=== PATIENT | male | born 2000 | race Hispanic/Latino ===

== ENCOUNTER 2021-10-26 08:53 | Emergency (ER) | payer SELFPAY ==
--- OUTSIDE RECORDS SUMMARY | 2021-10-26 08:57 | XMS REPORT | Continuity of Care Document ---
:2000 Author Organization [facility] t Address [address] [place] [address] Care Team Providers Name Role Phone Zakiya Coker Attending Clinician Zakiya POLLOCK Attending Clinician Unavailable Provider, Urgent Care Attending Clinician Unavailable Thomas RENDON Attending Clinician Bakari MOSES Attending Clinician Unavailable Payers Payer Name Policy Type Policy Number Effective Date Expiration Date S ource TITLE V 0-100% [id number] 2016 00:00:00 Problems Condition Condition Condition Status Onset Resolution Last Treating Co mments Source Name Details Category Date Date Treatment Clinician Date Genital Genital Disease Active 0 Univers warts warts 6 ity of 00:00: [place] 00 Medical Branch Screening Screening Disease Active Uni vers examinatio examinatio 12-25 it y of n for n for 00:00: [place] venereal venereal 00 Medica l disease disease Branch [facility] Disease Active 2020-0 Univers (molluscum (molluscum 12-24 it y of contagiosu contagiosu 00:00: Tommy mcconnell m) m) 00 Medical Branch Allergies, Adverse Reactions, Alerts Allergy Allergy Status Severity Reaction(s) Onset Inactive Treating Comm ents Source Name Type Date Date Clinician NO KNOWN Drug Active Univers ALLERGIE Class ity of [facility] [place] Social History Social Habit Start Date Stop Date Quantity Comments Source Sex Assigned At [facility] Medical Branch Exposure to Not sure [facility] SARS-CoV-2 (event) Medica l Branch Alcohol intake 2019-12-26 2019-12-26 [facility] 00:00:00 00:00:00 Medical Branch Smoking Status Start Date Stop Date Source Never smoker [facility] Medical Branch Medications Ordered Filled Start Stop Current Ordering Indication Dosage Frequency Signature Comments Components Source Medication Medication Date Date Medication? Clinician (SIG) Name Name imiquimod Yes [id number] 1{packe Apply 1 Univers (ALDARA) 5 6-08 t} Each to ity of % cream 00:00: area(s) [address] [place] [address] ([facility] Medical times [place] weekly on Sunday and . imiquimod Yes [id number] 1{packe Apply 1 Univers (ALDARA) 5 6-08 t} Each to ity of % cream 00:00: area(s) 2 [place] [address] ([facility] times [place] weekly on Sunday and . No known No Univers medications ity of [facility] Immunizations Ordered Immunization Filled Immunization Date Status Commen ts Source Name Name HPV9 2016-03-03 Completed University of 00:00:00 [facility] HEPATITIS A 2016-03-03 Completed University of 00:00:00 [facility] HPV9 2016-03-03 Completed University of 00:00:00 [facility] HEPATITIS A 2016-03-03 Completed University of 00:00:00 [facility] HPV9 2016-03-03 Completed University of 00:00:00 [facility] HEPATITIS A 2016-03-03 Completed University of 00:00:00 [facility] MMR 2015-05-17 Completed University of 00:00:00 [facility] Polio (IPV/OPV) 2015-05-17 Completed Universit y of 00:00:00 [facility] Influenza Virus 2015-05-17 Completed Universit y of Vaccine Quad IM 3+ 00:00:00 [facility] MMR 2015-05-17 Completed University of 00:00:00 [facility] Polio (IPV/OPV) 2015-05-17 Completed Universit y of 00:00:00 [facility] Influenza Virus 2015-05-17 Completed Universit y of Vaccine Quad IM 3+ 00:00:00 [facility] MMR 2015-05-17 Completed University of 00:00:00 [facility] Polio (IPV/OPV) 2015-05-17 Completed Universit y of 00:00:00 [facility] Influenza Virus 2015-05-17 Completed Universit y of Vaccine Quad IM 3+ 00:00:00 [facility] HEPATITIS A 2015-03-15 Completed University of 00:00:00 [facility] HEPATITIS A 2015-03-15 Completed University of 00:00:00 [facility] HEPATITIS A 2015-03-15 Completed University of 00:00:00 [facility] Meningococcal 2013-10-07 Completed University of Vaccine 00:00:00 [facility] Tdap 2013-10-07 Completed University of 00:00:00 [facility] Meningococcal 2013-10-07 Completed University of Vaccine 00:00:00 [facility] Tdap 2013-10-07 Completed University of 00:00:00 [facility] Meningococcal 2013-10-07 Completed University of Vaccine 00:00:00 [facility] Tdap 2013-10-07 Completed University of 00:00:00 [facility] Chickenpox Disease 2008-12-15 Completed Univer sity of 00:00:00 [facility] Chickenpox Disease 2008-12-15 Completed Univer sity of 00:00:00 [facility] Chickenpox Disease 2008-12-15 Completed Univer sity of 00:00:00 [facility] DTP 2004-06-17 Completed University of 00:00:00 [facility] DTP 2004-06-17 Completed University of 00:00:00 [facility] DTP 2004-06-17 Completed University of 00:00:00 [facility] DTP 2002-06-16 Completed University of 00:00:00 [facility] DTP 2002-06-16 Completed University of 00:00:00 [facility] DTP 2002-06-16 Completed University of 00:00:00 [facility] Measles 2002-02-18 Completed University of 00:00:00 [facility] Measles 2002-02-18 Completed University of 00:00:00 [facility] Measles 2002-02-18 Completed University of 00:00:00 [facility] MMR 2001-05-09 Completed University of 00:00:00 [facility] MMR 2001-05-09 Completed University of 00:00:00 [facility] MMR 2001-05-09 Completed University of 00:00:00 [facility] Hep B, Adol or Pedi 2000 Completed Unive rsity of Dosage 00:00:00 [facility] Polio (IPV/OPV) 2000 Completed Universit y of 00:00:00 [facility] DTP 2000 Completed University of 00:00:00 [facility] HIB 4 Dose Schedule 2000 Completed Unive rsity of 00:00:00 [facility] Hep B, Adol or Pedi 2000 Completed Unive rsity of Dosage 00:00:00 [facility] Polio (IPV/OPV) 2000 Completed Universit y of 00:00:00 [facility] DTP 2000 Completed University of 00:00:00 [facility] HIB 4 Dose Schedule 2000 Completed Unive rsity of 00:00:00 [place] [facility] Hep B, Adol or Pedi 2000 Completed Unive rsity of Dosage 00:00:00 [facility] Polio (IPV/OPV) 2000 Completed Universit y of 00:00:00 [facility] DTP 2000 Completed University of 00:00:00 [facility] HIB 4 Dose Schedule 2000 Completed Unive rsity of 00:00:00 [facility] Hep B, Adol or Pedi 2000 Completed Unive rsity of Dosage 00:00:00 [facility] DTP 2000 Completed University of 00:00:00 [facility] Polio (IPV/OPV) 2000 Completed Universit y of 00:00:00 [facility] HIB 4 Dose Schedule 2000 Completed Unive rsity of 00:00:00 [facility] Hep B, Adol or Pedi 2000 Completed Unive rsity of Dosage 00:00:00 [facility] Polio (IPV/OPV) 2000 Completed Universit y of 00:00:00 [facility] DTP 2000 Completed University of 00:00:00 [facility] HIB 4 Dose Schedule 2000 Completed Unive rsity of 00:00:00 [facility] Hep B, Adol or Pedi 2000 Completed Unive rsity of Dosage 00:00:00 [facility] Polio (IPV/OPV) 2000 Completed Universit y of 00:00:00 [facility] DTP 2000 Completed University of 00:00:00 [facility] HIB 4 Dose Schedule 2000 Completed Unive rsity of 00:00:00 [facility] DTP 2000 Completed University of 00:00:00 [facility] Hep B, Adol or Pedi 2000 Completed Unive rsity of Dosage 00:00:00 [facility] Polio (IPV/OPV) 2000 Completed Universit y of 00:00:00 [facility] HIB 4 Dose Schedule 2000 Completed Unive rsity of 00:00:00 [facility] Hep B, Adol or Pedi 2000 Completed Unive rsity of Dosage 00:00:00 [facility] Polio (IPV/OPV) 2000 Completed Universit y of 00:00:00 [facility] DTP 2000 Completed University of 00:00:00 [facility] HIB 4 Dose Schedule 2000 Completed Unive rsity of 00:00:00 [facility] Hep B, Adol or Pedi 2000 Completed Unive rsity of Dosage 00:00:00 [facility] Polio (IPV/OPV) 2000 Completed Universit y of 00:00:00 [facility] DTP 2000 Completed University of 00:00:00 [facility] HIB 4 Dose Schedule 2000 Completed Unive rsity of 00:00:00 [facility] Polio (IPV/OPV) 2000 Completed Universit y of 00:00:00 [facility] Polio (IPV/OPV) 2000 Completed Universit y of 00:00:00 [facility] BCG 2000 Completed University of 00:00:00 [facility] Polio (IPV/OPV) 2000 Completed Universit y of 00:00:00 [facility] BCG 2000 Completed University of 00:00:00 [facility] BCG 2000 Completed University of 00:00:00 [facility] Vital Signs Vital Name Observation Time Observation Value Comments Source Systolic blood 2019-12-26 18:43:00 137 mm[Hg] Univer sity of pressure [facility] Diastolic blood 2019-12-26 18:43:00 72 mm[Hg] Unive rsity of pressure [facility] Heart rate 2019-12-26 18:43:00 70 /min Universi ty of [facility] Body temperature 2019-12-26 18:43:00 37.33 Shannon [facility] ersity [facility] Respiratory rate 2019-12-26 18:43:00 16 /min Univ ersity of [facility] Body height 2019-12-26 18:43:00 177.8 cm Universi ty of [facility] Body weight 2019-12-26 18:43:00 63.73 kg Universi ty of [facility] BMI 2019-12-26 18:43:00 20.16 kg/m2 Universi ty of [facility] Systolic blood 2019-12-25 18:30:00 139 mm[Hg] Univer sity of pressure [facility] Diastolic blood 2019-12-25 18:30:00 73 mm[Hg] Unive rsity of pressure [facility] Heart rate 2019-12-25 18:30:00 110 /min Universi ty of [facility] Body temperature 2019-12-25 18:30:00 37.06 Shannon [facility] 2019-12-25 18:30:00 16 /min [facility] Body height 2019-12-25 18:30:00 177.8 cm Universi ty of [facility] Body weight 2019-12-25 18:30:00 63.504 kg Universi ty of [facility] BMI 2019-12-25 18:30:00 20.09 kg/m2 Universi ty [facility] Oxygen saturation in 2019-12-25 18:30:00 96 /min [facility] Arterial blood by [facility] Pulse oximetry Branch Procedures This patient has no known procedures. Encounters Start End Encounter Admission Attending Care Care Encounter Source Date/Time Date/Time Type Type Clinicians Facility Department ID 2019-12-26 2019-12-[address] 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 [id number] ity [facility] [id number] Rajat as MATERNAL [id number] Med ical & CHILD [address] [place] [address] 2019-12-26 2019-12-26 Outpatient R MAXIME [facility] [id number] Univers 14:00:00 14:00:00 PAOLA jordan o f [facility] 2019-12-26 2019-12-26 Outpatient R [facility] [id number] Univers 13:30:00 13:30:00 ity [facility] 2019-12-26 2019-12-26 Outpatient R [facility] [id number] Univers 13:30:00 13:30:00 ity of [facility] 2019-12-26 2019-12-26 Outpatient R MAXIME, [facility] [id number] Univers 13:30:00 13:30:00 PRANAVNDA ity o f [facility] 2019-12-25 2019-12-25 Urgent Provider, [facility] [id number] Univers 13:25:11 13:50:25 Care [facility] [id number] ity [facility] [id number] Rajat as essio [id number] Id dical [place] [address] Branch [address] 2019-12-25 2019-12-25 Outpatient R [facility] [id number] Univers 13:20:00 13:20:00 ity [facility] 2019-12-25 2019-12-25 Outpatient R [facility] [id number] Univers 13:20:00 13:20:00 ity of [facility] 2019-12-24 2019-12-24 Outpatient R [facility] [id number] Univers 20:40:00 20:40:00 ity [facility] 2019-12-24 2019-12-24 Outpatient R [facility] [id number] Univers 20:40:00 20:40:00 LESLIE ity o f [facility] 2019-12-24 2019-12-24 Outpatient R MOSES, [facility] [id number] Univers 20:40:00 20:40:00 LESLIE ity o f [facility] Results This patient has no known results.
[2021-10-26] MEDS ORDERED: LIDOCAINE VISCOUS 2% SOLN 15 ML UDC ONE (09:19)
[2021-10-26] MEDS ORDERED: MAGNES/ALUMIN/SIMET 30ML UCUP ONE (09:19)
[2021-10-26] MEDS ORDERED: FAMOTIDINE 20 MG/2 ML VIAL IV ONE (09:19)
[2021-10-26 09:32] LABS: Absolute Lymphocytes (CBC) 2.3 K/uL (0.7-4.9); Hematocrit 46.2 % (39.6-49.0); Lymphocytes % 39.6 % (15.3-44.8); MPV 7.3 fL (7.6-11.3); RBC Red Blood Cell Count 5.13 M/uL (4.33-5.43)
[2021-10-26 09:53] LABS: ALT/SGPT 25 U/L (12-78); AST/SGOT 16 U/L (15-37); Albumin 4.1 g/dL (3.4-5.0); Alkaline Phosphatase 87 U/L (45-117); BUN Blood Urea Nitrogen 13 mg/dL (7-18); Bicarbonate 29 mmol/L (21-32); Bilirubin Total 0.4 mg/dL (0.2-1.0); Glucose Level 88 mg/dL (74-106); Lipase 169 U/L (73-393); Potassium 3.6 mmol/L (3.5-5.1); Protein, Total 7.7 g/dL (6.4-8.2); Sodium Level 141 mmol/L (136-145)
--- NOTE | 2021-10-26 10:59 | RAD REPORT ---
EXAM DESCRIPTION: US - Abdomen Exam Limited - 10/26/2021 10:46 am CLINICAL HISTORY: ABD PAIN COMPARISON: No comparisons FINDINGS: Contracted gallbladder. No stones identified. No pericholecystic fluid. The common bile du ct measures 3 millimeters and is normal. IMPRESSION: Negative for cholelithiasis or sonographic evidence acute cholecystitis.
--- NOTE | 2021-10-26 11:19 | ER ---
Nurse's Notes [facility] Name: Perico Dubois Age: 21 yrs Sex: Male : 2000 Arrival Date: 10/26/2021 Time: 08:56 Bed Waiting Private MD: Diagnosis: Upper abdominal pain, unspecified Presentation: 10/26 09:11 Chief complaint: Patient states: "upper stomach pain X 3 days.". Coronavirus screen: At [facility] this time, the client does not indicate any symptoms associated with coronavirus-19. Ebola Screen: No symptoms or risks identified at this time. Initial Sepsis Screen: Does the patient meet any 2 criteria? No. Patient's initial sepsis screen is negative. Does the patient have a suspected source of infection? No. Patient's initial sepsis screen is negative. Risk Assessment: Do you want to hurt yourself or someone else? Patient reports no desire to harm self or others. Onset of symptoms was October 23, 2021. 09:11 Method Of Arrival: Ambulatory [facility] 09:11 Acuity: BERTA 3 jd3 Triage Assessment: 09:27 General: Appears in no apparent distress. comfortable, Behavior is calm, cooperative, jd3 appropriate for age. Pain: Complains of pain in epigastric area Quality of pain is described as sharp. EENT: No signs and/or symptoms were reported regarding the EENT system. Neuro: Level of Consciousness is awake, alert, obeys commands, Oriented to person, place, time, situation. Cardiovascular: Denies chest pain, Capillary refill < 3 seconds Patient's skin is warm and dry. Respiratory: Airway is patent Respiratory effort is even, unlabored, Respiratory pattern is regular, symmetrical, Denies cough, shortness of breath. GI: Abdomen is flat, non-distended, Abd is soft and non tender X 4 quads. Reports upper abdominal pain, Patient currently denies diarrhea, nausea, vomiting. : No signs and/or symptoms were reported regarding the genitourinary system. Derm: Skin is intact, Skin is dry, Skin is normal, Skin temperature is warm. Musculoskeletal: Circulation, motion, and sensation intact. Range of motion: intact in all extremities. Historical: - Allergies: 09:11 No Known Allergies; jd3 - Home Meds: 09:11 None [Active]; jd3 - PMHx: 09:11 None; jd3 - PSHx: 09:11 None; jd3 - Immunization history:: Adult Immunizations not up to date. - Social history:: Smoking status: Patient denies any tobacco usage or history of. Screenin:28 Abuse screen: Denies threats or abuse. Nutritional screening: No deficits noted. jd3 Tuberculosis screening: No symptoms or risk factors identified. Fall Risk IV access (20 points). Ambulatory Aid- None/Bed Rest/Nurse Assist (0 pts). Gait- Normal/Bed Rest/Wheelchair (0 pts) Mental Status- Oriented to own ability (0 pts). Total Harvey Fall Scale indicates No Risk (0-24 pts). Assessment: 11:20 Reassessment: Patient appears in no apparent distress at this time. Patient and/or jd3 family updated on plan of care and expected duration. Pain level reassessed. Patient is alert, oriented x 3, equal unlabored respirations, skin warm/dry/pink. Patient states feeling better. Vital Signs: 09:12 BP 127 / 71; Pulse 60; Resp 18 S; Temp 98.8(TE); Pulse Ox 100% on R/A; Weight 63.5 kg jd3 (R); Height 5 ft. 9 in. (175.26 cm) (R); Pain 7/10; 11:20 BP 116 / 71; Pulse 59; Resp 16 S; Pulse Ox 100% on R/A; Pain 0/10; jd3 09:12 Body Mass Index 20.67 (63.50 kg, 175.26 cm) jd3 ED Course: 08:56 Patient arrived in ED. as 08:56 Isabel Luque FNP-C is [facility]. kb 08:56 Eric Bermudez MD is Attending Physician. kb 09:11 Triage completed. jd3 09:12 Arm band placed on. jd3 09:26 Inserted saline lock: 20 gauge in right antecubital area, using aseptic technique. jd3 Blood collected. placed by AUDREY Reilly. 09:28 Patient has correct armband on for positive identification. Bed in low position. Adult jd3 w/ patient. Pulse ox on. NIBP on. 10:48 US Abdomen Limited In Process Unspecified. EDMS 11:21 No provider procedures requiring assistance completed. IV discontinued, intact, jd3 bleeding controlled, No redness/swelling at site. Pressure dressing applied. Administered Medications: 09:20 Drug: GI Cocktail without - (Maalox Suspension 30 ml, Lidocaine Liquid 2 % 15 jd3 ml) Route: PO; 10:20 Follow up: Response: No adverse reaction jd3 09:27 Drug: Pepcid (famotidine) 20 mg Route: IVP; Site: right antecubital; jd3 10:20 Follow up: Response: No adverse reaction jd3 Outcome: 11:19 Discharge ordered by MD. umaña 11:25 Discharged to home ambulatory, with family. jd3 11:25 Condition: stable 11:25 Discharge instructions given to patient, family, Instructed on discharge instructions, follow up and referral plans. Demonstrated understanding of instructions, follow-up care. 11:25 Patient left the ED. jd3 Signatures: Dispatcher [employer] EDMS Isabel Luque FNP-C FNP-Ckb Martinez, Amelia as Davies, Jonathon, RN RN jd3 Corrections: (The following items were deleted from the chart) 09:30 09:26 Inserted saline lock: 20 gauge in right antecubital area, using aseptic jd3 technique. Blood collected. placed by [facility] jd3
--- NOTE | 2021-10-26 11:19 | EDPHYS ---
Physician Documentation [facility] Name: Perico Dubois Age: 21 yrs Sex: Male : 2000 Arrival Date: 10/26/2021 Time: 08:56 Bed Waiting Private MD: ED Physician Eric Bermudez HPI: 10/26 11:15 This 21 yrs old Male presents to ER via Ambulatory with complaints of kb Abdominal Pain. 11:15 The patient presents with abdominal pain in the epigastric area. The patient has not kb recently seen a physician. 13:33 Onset: The symptoms/episode began/occurred 3 day(s) ago. The symptoms do not radiate. kb Associated signs and symptoms: none. The symptoms are described as burning. Modifying factors: The symptoms are alleviated by nothing, the symptoms are aggravated by nothing. Severity of pain: At its worst the pain was moderate in the emergency department the pain is unchanged. The patient has not experienced similar symptoms in the past. Historical: - Allergies: 09:11 No Known Allergies; jd3 - Home Meds: 09:11 None [Active]; jd3 - PMHx: 09:11 None; jd3 - PSHx: 09:11 None; jd3 - Immunization history:: Adult Immunizations not up to date. - Social history:: Smoking status: Patient denies any tobacco usage or history of. ROS: 12:12 Constitutional: Negative for fever, chills, and weight loss. kb 12:12 Abdomen/GI: Positive for abdominal pain. 12:12 All other systems are negative. Exam: 13:33 Constitutional: This is a well developed, well nourished patient who is awake, alert, kb and in no acute distress. Head/Face: Normocephalic, atraumatic. ENT: Moist Mucous membranes Cardiovascular: Regular rate and rhythm with a normal S1 and S2. No gallops, murmurs, or rubs. No pulse deficits. Respiratory: Respirations even and unlabored. No increased work of breathing. Talking in full sentences Skin: Warm, dry with normal turgor. Normal color. MS/ Extremity: Pulses equal, no cyanosis. Neurovascular intact. Full, normal range of motion. Neuro: Awake and alert, GCS 15, oriented to person, place, time, and situation. Moves all extremities. Normal gait. Psych: Awake, alert, with orientation to person, place and time. Behavior, mood, and affect are within normal limits. 13:33 Abdomen/GI: Inspection: abdomen appears normal, Bowel sounds: normal, in all quadrants, Palpation: soft, in all quadrants, mild abdominal tenderness, in the right upper quadrant and left upper quadrant. Vital Signs: 09:12 BP 127 / 71; Pulse 60; Resp 18 S; Temp 98.8(TE); Pulse Ox 100% on R/A; Weight 63.5 kg jd3 (R); Height 5 ft. 9 in. (175.26 cm) (R); Pain 7/10; 11:20 BP 116 / 71; Pulse 59; Resp 16 S; Pulse Ox 100% on R/A; Pain 0/10; jd3 09:12 Body Mass Index 20.67 (63.50 kg, 175.26 cm) jd3 MDM: 09:09 Patient medically screened. kb 11:18 Data reviewed: vital signs, nurses notes. Data interpreted: Pulse oximetry: on room air kb is 100 %. Interpretation: normal. 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 Response to treatment: the patient's symptoms have resolved after treatment. 10/26 09:09 Order name: CBC with Diff; Complete Time: 09:37 kb 10/26 09:09 Order name: CMP; Complete Time: 09:53 kb 10/26 09:09 Order name: Lipase; Complete Time: 09:53 kb 10/26 09:54 Order name: US Abdomen Limited; Complete Time: 11:01 kb 10/26 09:09 Order name: IV Saline Lock; Complete Time: 09:27 kb 10/26 09:09 Order name: Labs collected and sent; Complete Time: 09:27 kb Administered Medications: 09:20 Drug: GI Cocktail without - (Maalox Suspension 30 ml, Lidocaine Liquid 2 % 15 jd3 ml) Route: PO; 10:20 Follow up: Response: No adverse reaction jd3 09:27 Drug: Pepcid (famotidine) 20 mg Route: IVP; Site: right antecubital; jd3 10:20 Follow up: Response: No adverse reaction jd3 Disposition: 12:58 Co-signature as Attending Physician, Eric Bermudez MD I agree with the assessment and kdr plan of care. Disposition Summary: 10/26/21 11:19 Discharge Ordered Location: Home kb Condition: Stable kb Diagnosis - Upper abdominal pain, unspecified kb Followup: kb - With: Emergency Department - When: As needed - Reason: Worsening of condition Followup: kb - With: Private Physician - When: 2 - 3 days - Reason: Recheck today's complaints, Continuance of care, Re-evaluation by your physician Discharge Instructions: - Discharge Summary Sheet kb - Gastroesophageal Reflux Disease, Adult kb - Abdominal Pain, Adult, Urho-ce-Sahy kb Forms: - Medication Reconciliation Form kb - Thank You Letter kb - Antibiotic Education kb - Prescription Opioid Use kb Signatures: Dispatcher [employer] EDMS Isabel Luque, JUSTICE-C JUSTICE-Eric Ornelas MD MD kdr Roger Ayon RN RN jd3 Corrections: (The following items were deleted from the chart) 13:33 13:33 Abdomen/GI: Inspection: abdomen appears normal, Bowel sounds: normal, in all kb quadrants, Palpation: soft, in all quadrants, mild abdominal tenderness, in the epigastric area, kb
[2021-10-26 21:17] VITALS: TEMP 98.8; O2SAT 100
[2021-10-26 21:19] VITALS: BP 116/71
== END 2021-10-26 11:25 | disposition home or self-care (01) ==
LOC: ER 08:53
DX: R10.13 Epigastric pain (principal)
CPT/HCPCS: 36415; 76705; 80053; 83690; 85025; 96374; 99284

== ENCOUNTER 2024-03-30 18:47 | Emergency (ER) | payer SELFPAY ==
[2024-03-30] MEDS ORDERED: NA CHLORIDE 0.9% 1,000 ML ONE (19:20)
[2024-03-30 19:26] LABS: Absolute Eosinophils 0.1 K/uL (0-0.5); Absolute Lymphocytes (CBC) 3.9 K/uL (0.7-4.9); Absolute Monocytes 0.5 K/uL (0.1-1.3); Absolute Neutrophil 4.1 K/uL (1.8-8.0); Basophils % 0.6 % (0-1.3); Eosinophils % 1.3 % (0-4.4); Hematocrit 42.1 % (39.6-49.0); Hemoglobin 14.6 g/dL (13.6-17.9); Lymphocytes % 45.4 % (15.3-44.8); MCH 31.2 pg (27.0-35.0); MCHC 34.6 g/dL (32.0-36.0); MCV 90.2 fL (80-100); MPV 7.1 fL (7.6-11.3); Monocytes % 5.4 % (3.3-12.3); Neutrophils % 47.3 % (41.7-73.7); Nucleated Red Blood Cells % 0.4 % (0-0); Platelets 237 thou/uL (152-406); RBC Red Blood Cell Count 4.67 M/uL (4.33-5.43); Red Cell Distribution Width 13.5 % (12.1-15.2)
[2024-03-30 19:39] LABS: PT Prothrombin Time 12.4 SECONDS (9.4-12.5); PTT, Activated Partial Thromb 26.7 SECONDS (24.3-36.9); Protime INR 1.11
[2024-03-30 19:50] LABS: ALT/SGPT 30 U/L (16-61); AST/SGOT 16 U/L (15-37); Albumin 4.2 g/dL (3.4-5.0); Albumin/Globulin Ratio 1.3 (1.1-1.8); Alkaline Phosphatase 71 U/L (45-117); Anion Gap 11.6 mEq/L (5.0-15.0); BUN Blood Urea Nitrogen 23 mg/dL (7-18); Bicarbonate 25 mEq/L (21-32); Bilirubin Total 0.5 mg/dL (0.2-1.0); Globulin 3.3 g/dL (2.3-3.5); Glomerular Filtration Rate 100 ml/min (=/>90); Glucose Level 110 mg/dL (74-106); Magnesium 1.8 mg/dL (1.6-2.4); Potassium 3.6 mEq/L (3.5-5.1); Protein, Total 7.5 g/dL (6.4-8.2); Sodium Level 138 mEq/L (136-145)
--- NOTE | 2024-03-30 19:57 | RAD REPORT ---
EXAM DESCRIPTION: CT - Head Brain Wo Cont - 03/30/2024 7:49 pm CLINICAL HISTORY: SYNCOPE Trauma, head injury COMPARISON: No comparisons TECHNIQUE: All CT scans are performed using dose optimization technique as appropriate and may inclu de automated exposure control or mA/KV adjustment according to patient size. FINDINGS: No intracranial hemorrhage, hydrocephalus or extra-axial fluid collection.No areas of brai n edema or evidence of midline shift. The paranasal sinuses and mastoids are clear. The calvarium is intact. IMPRESSION: No acute intracranial abnormality.
[2024-03-30 20:13] LABS: Bilirubin Direct < 0.2 mg/dL (0-0.2); Bilirubin Indirect, Calculated 0.3 mg/dL (0.2-0.8); Troponin High Sensitivity < 3.0 pg/mL (<58.9)
--- NOTE | 2024-03-30 20:20 | ER ---
Nurse's Notes [facility] Name: Perico Dubois Age: 23 yrs Sex: Male : 2000 Arrival Date: 03/30/2024 Time: 18:47 Bed 4 Private MD: Diagnosis: Syncope;Unspecified injury of head, initial encounter Presentation: 03/30 19:11 Chief complaint: Patient states: about 10 minutes ago, I cut my finger while working in 6 the yard. My started to clean it, I passed out and fell on my head, my head started bleeding. Coronavirus screen: Vaccine status: Patient reports being unvaccinated. Ebola Screen: Patient negative for fever greater than or equal to 101.5 degrees Fahrenheit, and additional compatible Ebola Virus Disease symptoms Patient denies exposure to infectious person. Patient denies travel to an Ebola-affected area in the 21 days before illness onset. No symptoms or risks identified at this time. Complicating Factors: There are no complicating factors for this patient. Initial Sepsis Screen: Does the patient meet any 2 criteria? No. Patient's initial sepsis screen is negative. Does the patient have a suspected source of infection? No. Patient's initial sepsis screen is negative. Risk Assessment: Do you want to hurt yourself or someone else? Patient reports no desire to harm self or others. Onset of symptoms was March 30, 2024. 19:11 Method Of Arrival: Ambulatory 6 19:11 Acuity: BERTA 3 tm6 Triage Assessment: 19:13 General: Appears in no apparent distress. Behavior is calm, cooperative. Pain: Denies 6 pain. EENT: No signs and/or symptoms were reported regarding the EENT system. Neuro: Level of Consciousness is awake, alert, obeys commands, Oriented to person, place, time, situation, Reports a syncopal episode. Cardiovascular: Patient's skin is warm and dry. Respiratory: Airway is patent Respiratory effort is even, unlabored, Respiratory pattern is regular, symmetrical. GI: No signs and/or symptoms were reported involving the gastrointestinal system. Abdomen is flat, non-distended. : No signs and/or symptoms were reported regarding the genitourinary system. Derm: Wound noted scalp Wound is superficial laceration, small, no longer bleeding. Musculoskeletal: No signs and/or symptoms reported regarding the musculoskeletal system. Injury Description: Laceration sustained to scalp is superficial, not bleeding, was sustained less than 30 minutes ago. is bleeding no active bleeding noted. Historical: - Allergies: 19:13 No Known Allergies; tm6 - PMHx: 19:13 None; tm6 - PSHx: 19:13 None; tm6 - Immunization history:: Client reports having NOT received the Covid vaccine. - Infectious Disease History:: Denies. - Social history:: Smoking status: Patient reports the use of cigarette tobacco products, denies chronic smoking, but will smoke occasionally, Patient uses alcohol, occasionally. Screenin:33 [facility] ED Fall Risk Assessment (Adult) History of falling in the last 3 months, al5 including since admission Yes- physiologic fall (2 pts) Confusion or Disorientation No (0 pts) Intoxicated or Sedated No (0 pts) Impaired Gait No (0 pts) Mobility Assist Device Used No (0 pt) Altered Elimination No (0 pt) Score/Fall Risk Level 0 - 2 = Low Risk Oriented to surroundings, Maintained a safe environment, Provided non-skid footwear, Hourly rounding (assess needs \T\ fall precautionary measures) done. Abuse screen: Denies threats or abuse. Denies injuries from another. Nutritional screening: No deficits noted. Tuberculosis screening: No symptoms or risk factors identified. Assessment: 19:36 General: Appears in no apparent distress. comfortable, Behavior is calm, cooperative. al5 Pain: Denies pain. Neuro: Level of Consciousness is awake, alert, obeys commands, Oriented to person, place, time, situation. Cardiovascular: Capillary refill < 3 seconds Patient's skin is warm and dry. Respiratory: Airway is patent Respiratory effort is even, unlabored, Respiratory pattern is regular, symmetrical. GI: No signs and/or symptoms were reported involving the gastrointestinal system. Abdomen is flat, non-distended. : No signs and/or symptoms were reported regarding the genitourinary system. EENT: No signs and/or symptoms were reported regarding the EENT system. Derm: Reports laceration to L side scalp and L middle finger, wounds superficial with minimal to no bleeding. states he had cut his finger and when his went to clean it, he passed out and hit his head. Musculoskeletal: No signs and/or symptoms reported regarding the musculoskeletal system. Vital Signs: 19:11 BP 108 / 76; Pulse 57; Resp 17; Temp 98.4(O); Pulse Ox 100% on R/A; Weight 72.57 kg; tm6 Height 5 ft. 9 in. ; Pain 0/10; 19:39 BP 117 / 76; Pulse 71; Resp 16; Pulse Ox 100% on R/A; al5 20:25 BP 117 / 77; Pulse 71; Resp 16; Pulse Ox 100% ; vc1 19:11 Body Mass Index 23.63 (72.57 kg, 175.26 cm) tm6 19:11 Pain Scale: Adult tm6 ED Course: 18:47 Patient arrived in ED. ra3 18:49 Dania Vanessa PA-C is PHCP. sb4 18:49 Hasmukh Elizalde MD is Attending Physician. sb4 19:08 Lindsey York, CURTIS is Primary Nurse. al5 19:13 Triage completed. tm6 19:15 Arm band placed on right wrist. tm6 19:19 Basic Metabolic Panel Sent. al5 19:19 CBC with Diff Sent. al5 19:19 Hepatic Function Sent. al5 19:19 Magnesium Sent. al5 19:19 Ptt, Activated Sent. al5 19:19 Protime (+inr) Sent. al5 19:19 Troponin High Sensitivity Sent. al5 19:35 Patient has correct armband on for positive identification. Bed in low position. Call al5 light in reach. Side rails up X 1. Provided Education on: processes and procedures. 19:36 No provider procedures requiring assistance completed. Inserted saline lock: 20 gauge al5 in right antecubital area, using aseptic technique. Blood collected. Flushed with 10 mL NS. 19:50 CT Head Brain wo Cont In Process Unspecified. EDMS 20:26 IV discontinued, intact, bleeding controlled, No redness/swelling at site. Pressure vc1 dressing applied. Administered Medications: 19:33 Drug: NS 0.9% IV 1000 ml IV at 1 bolus Per protocol; 1000 mL bolus Route: IV; Rate: 1 al5 bolus; Site: right antecubital; 20:27 Follow up: Response: No adverse reaction; IV Status: Completed infusion; IV Intake: al5 1000ml Medication: 20:25 VIS not applicable for this client. vc1 Intake: 20:27 IV: 1000ml; Total: 1000ml. al5 Outcome: 20:20 Discharge ordered by . sb4 20:26 Discharged to home ambulatory, with family, with significant other, vc1 20:26 Condition: good 20:26 Discharge instructions given to patient, significant other, Instructed on discharge instructions, follow up and referral plans. Demonstrated understanding of instructions, follow-up care, 20:27 Patient left the ED. vc1 Signatures: Dispatcher [employer] EDMS Sofia Arenas RN RN vc1 Dania Vanessa PA-C PARodrigo [email or web address] Arcelia Garner RN RN tm6 Alyx Gaytan ra3 Lindsey York RN RN al5 Corrections: (The following items were deleted from the chart) 19:15 19:11 Acuity: BERTA 4 tm6 tm6 19:39 19:36 Derm: Reports laceration to L side scalp and L middle finger, wounds superficial al5 with minimal to no bleeding. al5 20:26 20:25 Pulse 71bpm; Resp 16bpm; Pulse Ox 100%; vc1 vc1
--- NOTE | 2024-03-30 20:20 | EDPHYS ---
Physician Documentation [facility] Name: Perico Dubois Age: 23 yrs Sex: Male : 2000 Arrival Date: 03/30/2024 Time: 18:47 Bed 4 Private MD: ED Physician Hasmukh Elizalde HPI: 03/30 19:14 This 23 yrs old Male presents to ER via Ambulatory with complaints of Syncope. sb4 19:14 Patient states that he and his were outside and he cut his finger on a wire. He sb4 started bleeding and his cleaned it and all of a sudden states that he passed out and hit his head on the concrete. States that he started bleeding from the side of his head. He does not really remember what happened but has no complaints at this time other than feeling a little weak. He denies any chronic medical issues or daily medication. Historical: - Allergies: 19:13 No Known Allergies; tm6 - PMHx: 19:13 None; tm6 - PSHx: 19:13 None; tm6 - Immunization history:: Client reports having NOT received the Covid vaccine. - Infectious Disease History:: Denies. - Social history:: Smoking status: Patient reports the use of cigarette tobacco products, denies chronic smoking, but will smoke occasionally, Patient uses alcohol, occasionally. ROS: 19:14 Constitutional: Negative for fever, chills, and weight loss, sb4 19:14 Skin: Positive for laceration(s), of the left frontal area, and distal left middle finger, 19:14 Neuro: Positive for syncope, 19:17 All other systems are negative, sb4 Exam: 19:17 Constitutional: This is a well developed, well nourished patient who is awake, alert, sb4 and in no acute distress. Eyes: Extra-ocular motions intact. Periorbital areas with no swelling, redness, or edema. ENT: Mucous membranes moist. Cardiovascular: Regular rate and rhythm with a normal S1 and S2. Respiratory: Lungs have equal breath sounds bilaterally, clear to auscultation and percussion. No rales, rhonchi or wheezes noted. No increased work of breathing, no retractions or nasal flaring. Abdomen/GI: Soft, non-tender, no distension. 19:17 Head/face: Noted is a laceration(s), that is superficial, 1 cm(s), of the left frontal area, 19:17 Skin: injury, laceration(s), the wound is approximately 2 cm(s), with a depth of .2 cm(s), of the palmar aspect of distal phalanx of left middle finger, that can be described as no foreign body, irregular, without bleeding, Vital Signs: 19:11 BP 108 / 76; Pulse 57; Resp 17; Temp 98.4(O); Pulse Ox 100% on R/A; Weight 72.57 kg; tm6 Height 5 ft. 9 in. ; Pain 0/10; 19:39 BP 117 / 76; Pulse 71; Resp 16; Pulse Ox 100% on R/A; al5 20:25 BP 117 / 77; Pulse 71; Resp 16; Pulse Ox 100% ; vc1 19:11 Body Mass Index 23.63 (72.57 kg, 175.26 cm) tm6 19:11 Pain Scale: Adult tm6 MDM: 18:51 Patient medically screened. sb4 19:17 ED course: lacerations are superficial and will not require repair. sb4 20:22 Data reviewed: vital signs, nurses notes, lab test result(s), EKG, radiologic studies, sb4 and as a result, I will discharge patient. Counseling: I had a detailed discussion with the patient and/or guardian regarding the historical points, exam findings, and any diagnostic results supporting the discharge/admit diagnosis, lab results, radiology results, to return to the emergency department if symptoms worsen or persist or if there are any questions or concerns that arise at home. 03/30 19:12 Order name: Basic Metabolic Panel; Complete Time: 20:14 sb4 03/30 19:12 Order name: CBC with Diff; Complete Time: 19:35 sb4 03/30 19:12 Order name: Hepatic Function; Complete Time: 20:14 sb4 03/30 19:12 Order name: Magnesium; Complete Time: 20:14 sb4 03/30 19:12 Order name: Protime (+inr); Complete Time: 19:40 sb4 03/30 19:12 Order name: Ptt, Activated; Complete Time: 19:40 sb4 03/30 19:12 Order name: Troponin High Sensitivity; Complete Time: 20:14 sb4 03/30 19:12 Order name: CT Head Brain wo Cont; Complete Time: 19:57 sb4 03/30 19:12 Order name: Cardiac monitoring; Complete Time: 19:33 sb4 03/30 19:12 Order name: EKG - Nurse/Tech; Complete Time: 19:33 sb4 03/30 19:12 Order name: IV Saline Lock; Complete Time: 19:19 sb4 03/30 19:12 Order name: Labs collected and sent; Complete Time: 19:19 sb4 03/30 19:12 Order name: O2 Per Protocol; Complete Time: 19:19 sb4 03/30 19:12 Order name: O2 Sat Monitoring; Complete Time: 19:19 sb4 03/30 19:14 Order name: Wound Care; Complete Time: :33 sb4 EC:21 Rate is 64 beats/min. Rhythm is regular, Sinus arrythmia. SC interval is normal at 190 sb4 msec. QRS interval is normal at 82 msec. QT interval is normal at 356 msec. No Q waves. T waves are Normal. No ST changes noted. Clinical impression: benign early repolarization. Interpreted by me. Reviewed by me. Administered Medications: :33 Drug: NS 0.9% IV 1000 ml IV at 1 bolus Per protocol; 1000 mL bolus Route: IV; Rate: 1 al5 bolus; Site: right antecubital; 20:27 Follow up: Response: No adverse reaction; IV Status: Completed infusion; IV Intake: al5 1000ml Disposition: 03/31 07:36 Co-signature as Attending Physician, Hasmukh Elizalde MD I reviewed the patient's care rt provided by the Advanced Practice Provider and agree with the diagnosis and treatment plan. Disposition Summary: 03/30/24 20:20 Discharge Ordered Notes: Location: Home sb4 Problem: new sb4 Symptoms: have improved sb4 Condition: Stable sb4 Diagnosis - Syncope sb4 - Unspecified injury of head, initial encounter sb4 Followup: sb4 - With: Private Physician - When: 1 week - Reason: Recheck today's complaints, Re-evaluation by your physician Discharge Instructions: - Discharge Summary Sheet sb4 - Head Injury, Adult sb4 - Syncope, [id number] sb4 - Facial or Scalp Contusion, [id number] sb4 Forms: - Family Work Release sb4 - Patient Portal Instructions sb4 - Leadership Thank You Letter sb4 Signatures: Dispatcher [employer] EDMS Dania Vanessa PA-C PARodrigo sb4 Hasmukh Elizalde MD MD rt Arcelia Garner RN RN tm6 Lindsey York RN RN al5 Corrections: (The following items were deleted from the chart) 03/30 19:13 19:13 BASIC METABOLIC PANEL+C.LAB.BRZ ordered. EDMS EDMS 19:13 19:13 CBC+H.LAB.BRZ ordered. EDMS EDMS 19:13 19:13 HEPATIC FUNCTION+C.LAB.BRZ ordered. EDMS EDMS 19:13 19:13 MAGNESIUM+C.LAB.BRZ ordered. EDMS EDMS 19:13 19:13 PROTIME (+INR)+COAG.LAB.BRZ ordered. EDMS EDMS 19:13 19:13 PTT, ACTIVATED+COAG.LAB.BRZ ordered. EDMS EDMS 19:13 19:13 Troponin High Sensitivity+C.LAB.BRZ ordered. EDMS EDMS 19:13 19:13 Head Brain Wo Cont+CT.RAD.BRZ ordered. EDMS EDMS 19:17 19:14 Skin: Positive for laceration(s), of the left frontal area, sb4 sb4
[2024-03-30 20:47] VITALS: TEMP 98.4; O2SAT 100
[2024-03-30 21:02] VITALS: BP 117/77
--- NOTE | 2024-04-01 16:58 | EKG ---
Test Date: 2024-03-30 Test Time: 19:25:33 Housekeeping Worker: SUJEY MEASUREMENT RESULTS: Intervals: Rate: 64 [place]: 190 QRSD: 82 QT: 356 QTc: 367 [place]: P: 78 [place]: 190 QRS: 83 T: 57 INTERPRETIVE STATEMENTS: Normal sinus rhythm with sinus arrhythmia Acute pericarditis Abnormal ECG No previous ECG available for comparison Electronically Signed On 04-01-24 16:53:40 CDT by Pradip Forman
== END 2024-03-30 20:27 | disposition home or self-care (01) ==
LOC: ER 18:47
DX: R55 Syncope and collapse (principal); F17.220 Nicotine dependence, chewing tobacco, uncomplicated; S09.90XA Unspecified injury of head, initial encounter; S61.213A Laceration without foreign body of left middle finger without damage to nail, initial encounter; W45.8XXA Other foreign body or object entering through skin, initial encounter; W18.39XA Other fall on same level, initial encounter; Y93.89 Activity, other specified; Y92.019 Unspecified place in single-family (private) house as the place of occurrence of the external cause
CPT/HCPCS: 36415; 70450; 80048; 80076; 83735; 84484; 85025; 85610; 85730; 93005; 96360; 99284; J7030